=== PATIENT | female | born 1985 ===

== ENCOUNTER 2021-03-26 14:42 | Day surgery (SDC) | payer OTHER ==
[~2021-03-26 14:42] MED LIST: BUTALBITAL-ACE1 EAC2 PO; DOLOGESIC 500-1 EACH PO
== END 2021-03-27 01:50 | disposition home or self-care (01) ==
LOC: CIR.AMB 14:42
PROVIDERS: ATTEND Obstetrics & Gynecology Obstetrics
DX: N92.1 Excessive and frequent menstruation with irregular cycle (principal)